=== PATIENT | female | born 1955 | race Caucasian/White ===

== ENCOUNTER 2020-07-23 23:14 | Inpatient (IN) | payer OTHER ==
[~2020-07-23] VITALS: Ht 152.4 cm; Wt 65.1 kg
[2020-07-24] MEDS ORDERED: ONDANSETRON ODT 4 MG TAB PO ONE ×2 (01:09→01:15)
[2020-07-24 07:35] LABS: Basophils # (auto) 0 10 ^3/uL (0-0.2); Eosinophils # (auto) 0.1 10 ^3/uL (0-0.8); Eosinophils % (auto) 0.8 % (0.0-7.0); Lymphocytes # (auto) 0.8 10 ^3/uL (0.4-5.4); Mean Corpuscular Volume 69.5 fL (80.0-100.0); Monocytes # (auto) 0.5 10 ^3/uL (0-1.3); Monocytes % (auto) 5.7 % (0.0-12.0)
[2020-07-24 07:38] LABS: Basophils % (auto) 0.3 % (0.0-2.0); Hematocrit 28.6 % (36.0-46.0); Hemoglobin 9.4 g/dL (12.2-16.2); Lymphocytes % (auto) 10.1 % (10.0-50.0); Mean Corpuscular Hemoglobin 22.9 pg (28.0-32.0); Neutrophils # (auto) 6.6 10 ^3/uL (1.6-8.6); Neutrophils % (auto) 83.1 % (37.0-80.0); Nucleated Red Blood Cells % 0.1 %; Platelet Count (auto) 482 10^3/uL (140-450); Red Blood Cells 4.12 10^6/uL (4.0-5.20); Red Cell Distribution Width 18.8 % (11.8-14.3)
[2020-07-24 08:00] LABS: Lactic Acid w/Reflex 2.3 mmol/L (0.4-2.0)
[2020-07-24 09:04] LABS: Albumin 3.2 g/dL (3.4-5.0); BUN/Creatinine Ratio 15.1; Calcium 8.9 mg/dL (8.5-10.1)
[2020-07-24 09:13] LABS: Bilirubin, Total 0.2 mg/dL (0.2-1.0); Total Protein 7.6 g/dL (6.4-8.2)
[2020-07-24] MEDS ORDERED: IOHEXOL 300 MG/ML 100ML BOTTLE IJ ONE (10:38)
[2020-07-24] MEDS ORDERED: NITROGLYCERIN 0.4 MG SL TAB SL PRN (17:00)
[2020-07-24] MEDS ORDERED: SOD CHL 0.9%/ KCL 40MEQ 1,000 ML IV ONE (17:00)
[2020-07-24] MEDS ORDERED: DOCUSATE SOD 100 MG CAP PO PRN (17:00)
[2020-07-24] MEDS ORDERED: MORPHINE SULF INJ 2 MG/ML SYRINGE 1ML IV PRN (17:00)
[2020-07-24] MEDS ORDERED: ACETAMINOPHEN 500 MG TAB PO PRN (17:00)
[2020-07-25] MEDS: CLINDAMYCIN 300MG IV 50 ML IV SCH ×4 (04:29→21:32)
[2020-07-25] MEDS: cefTRIAXone 1GM/50ML D5W 50 ML IV SCH (09:33)
[2020-07-25] MEDS: MORPHINE SULF INJ 2 MG/ML SYRINGE 1ML IV PRN ×3 (10:16→22:38)
[2020-07-25] MEDS: ONDANSETRON HCL 4 MG/2 ML VIAL IV PRN ×2 (10:16→18:03)
[2020-07-25] MEDS ORDERED: POTASSIUM EFFERVESENT TAB 25 MEQ PO ONE (15:00)
[2020-07-25 22:18] VITALS: BP 142/66
[2020-07-26] VITALS: BP 142/66
[2020-07-26] MEDS: HYDROcodone-ACET 5/325MG TAB PO PRN ×3 (00:22→21:46)
[2020-07-26] MEDS: CLINDAMYCIN 300MG IV 50 ML IV SCH ×3 (05:37→21:46)
[2020-07-26] MEDS: MORPHINE SULF INJ 2 MG/ML SYRINGE 1ML IV PRN ×3 (05:49→20:00)
[2020-07-26 06:28] LABS: Lymphocytes # (auto) 0.8 10 ^3/uL (0.4-5.4); Monocytes # (auto) 0.6 10 ^3/uL (0-1.3); Neutrophils # (auto) 4.1 10 ^3/uL (1.6-8.6); White Blood Cell 5.7 10^3/uL (4.4-10.8)
[2020-07-26 06:30] LABS: Basophils # (auto) 0 10 ^3/uL (0-0.2); Basophils % (auto) 0.6 % (0.0-2.0); Eosinophils # (auto) 0.3 10 ^3/uL (0-0.8); Eosinophils % (auto) 4.4 % (0.0-7.0); Hematocrit 23.5 % (36.0-46.0); Hemoglobin 7.7 g/dL (12.2-16.2); Mean Corpuscular Hemoglobin 22.7 pg (28.0-32.0); Monocytes % (auto) 10.3 % (0.0-12.0); Neutrophils % (auto) 70.7 % (37.0-80.0); Platelet Count (auto) 345 10^3/uL (140-450); Red Cell Distribution Width 19.1 % (11.8-14.3)
[2020-07-26 08:00] VITALS: BP 128/73
[2020-07-26 08:02] LABS: BUN/Creatinine Ratio 13.6; Calcium 8.1 mg/dL (8.5-10.1); Potassium 3.6 mmol/L (3.5-5.1)
[2020-07-26] MEDS: cefTRIAXone 1GM/50ML D5W 50 ML IV SCH (09:23)
[2020-07-26 10:56] LABS: % Iron Saturation 3.8 % (15-50)
[2020-07-26 11:06] LABS: CRP High Sensitivity 3.7 mg/dL (< 0.3)
[2020-07-26 16:00] VITALS: BP 133/70
[2020-07-26] MEDS: FERROUS SULFATE 325 MG TAB PO SCH (17:05)
[2020-07-27] VITALS: BP 119/72
[2020-07-27] MEDS: MORPHINE SULF INJ 2 MG/ML SYRINGE 1ML IV PRN ×4 (01:31→21:28)
[2020-07-27] MEDS: CLINDAMYCIN 300MG IV 50 ML IV SCH ×3 (05:40→21:27)
[2020-07-27 06:27] LABS: Eosinophils # (auto) 0.3 10 ^3/uL (0-0.8); Hemoglobin 8.3 g/dL (12.2-16.2); Lymphocytes # (auto) 0.7 10 ^3/uL (0.4-5.4); Mean Corpuscular Hemoglobin 22.5 pg (28.0-32.0); Mean Corpuscular Volume 68.9 fL (80.0-100.0); Monocytes # (auto) 0.5 10 ^3/uL (0-1.3); White Blood Cell 5.5 10^3/uL (4.4-10.8)
[2020-07-27 06:30] LABS: Basophils # (auto) 0.1 10 ^3/uL (0-0.2); Basophils % (auto) 1.1 % (0.0-2.0); Eosinophils % (auto) 6.2 % (0.0-7.0); Hematocrit 25.3 % (36.0-46.0); Lymphocytes % (auto) 13.5 % (10.0-50.0); Mean Corpuscular Hgb Conc. 32.7 g/dL (32.0-36.0); Neutrophils # (auto) 3.8 10 ^3/uL (1.6-8.6); Neutrophils % (auto) 70.2 % (37.0-80.0); Nucleated Red Blood Cells % 0.1 %; Platelet Count (auto) 388 10^3/uL (140-450); Red Blood Cells 3.68 10^6/uL (4.0-5.20); Red Cell Distribution Width 19.3 % (11.8-14.3)
[2020-07-27 08:00] VITALS: BP 141/66
[2020-07-27 08:02] LABS: Calcium 8.2 mg/dL (8.5-10.1); Potassium 3.7 mmol/L (3.5-5.1)
[2020-07-27] MEDS: FERROUS SULFATE 325 MG TAB PO SCH ×2 (09:31→18:04)
[2020-07-27] MEDS: cefTRIAXone 1GM/50ML D5W 50 ML IV SCH (09:32)
[2020-07-27] MEDS ORDERED: GASTROGRAFIN 30 ML SOL ONE (14:25)
[2020-07-27 16:00] VITALS: BP 131/60
[2020-07-27] MEDS: ASCORBIC ACID 500 MG TAB PO SCH (21:27)
[2020-07-28] VITALS: BP 115/73
[2020-07-28] MEDS: MORPHINE SULF INJ 2 MG/ML SYRINGE 1ML IV PRN ×3 (02:36→18:25)
[2020-07-28] MEDS: CLINDAMYCIN 300MG IV 50 ML IV SCH (05:29)
[2020-07-28] MEDS: HYDROcodone-ACET 5/325MG TAB PO PRN ×2 (06:43→22:10)
[2020-07-28 08:00] VITALS: BP 147/69
[2020-07-28] MEDS: cefTRIAXone 1GM/50ML D5W 50 ML IV SCH (09:27)
[2020-07-28] MEDS: CHOLECALCIFEROL (VITD3) 2,000 UNIT CAP PO SCH (09:27)
[2020-07-28] MEDS: ZINC SULFATE 220mg CAP or TAB PO SCH (09:27)
[2020-07-28] MEDS: FERROUS SULFATE 325 MG TAB PO SCH ×2 (09:27→18:24)
[2020-07-28] MEDS: ASCORBIC ACID 500 MG TAB PO SCH ×2 (09:27→22:03)
[2020-07-28] MEDS ORDERED: CHOL20007 PO (13:22)
[2020-07-28] MEDS ORDERED: ZINC220T6 PO (13:22)
[2020-07-28] MEDS ORDERED: ASCO500T11 PO (13:22)
[2020-07-28] MEDS ORDERED: FER325T PO (13:22)
[2020-07-28] MEDS ORDERED: DOXY-340 PO (13:35)
[2020-07-28 14:47] LABS: Hemoglobin 8.5 g/dL (12.2-16.2)
[2020-07-28 14:49] LABS: Hematocrit 25.3 % (36.0-46.0)
[2020-07-28 16:00] VITALS: BP 138/48
[2020-07-28] MEDS: DOXYCYCLINE 100 MG TAB/CAP PO SCH (22:03)
[2020-07-29] VITALS: BP 118/74
[2020-07-29 02:57] VITALS: BP 118/74
[2020-07-29] MEDS: HYDROcodone-ACET 5/325MG TAB PO PRN (05:48)
[2020-07-29 08:00] VITALS: BP 90/53
[2020-07-29] MEDS: FERROUS SULFATE 325 MG TAB PO SCH ×2 (08:00→17:49)
[2020-07-29] MEDS: DOXYCYCLINE 100 MG TAB/CAP PO SCH ×2 (09:28→21:23)
[2020-07-29] MEDS: CHOLECALCIFEROL (VITD3) 2,000 UNIT CAP PO SCH (09:28)
[2020-07-29] MEDS: ASCORBIC ACID 500 MG TAB PO SCH ×2 (09:28→21:23)
[2020-07-29] MEDS: ZINC SULFATE 220mg CAP or TAB PO SCH (09:28)
[2020-07-29] MEDS: MORPHINE SULF INJ 2 MG/ML SYRINGE 1ML IV PRN ×3 (15:27→23:58)
[2020-07-29 16:00] VITALS: BP 147/82
[2020-07-29] MEDS: ONDANSETRON HCL 4 MG/2 ML VIAL IV PRN (23:26)
[2020-07-30] VITALS: BP 123/84
[2020-07-30] MEDS: MORPHINE SULF INJ 2 MG/ML SYRINGE 1ML IV PRN ×5 (05:02→22:47)
[2020-07-30 07:30] VITALS: BP 138/76
[2020-07-30] MEDS: FERROUS SULFATE 325 MG TAB PO SCH ×2 (08:00→17:46)
[2020-07-30] MEDS: DOXYCYCLINE 100 MG TAB/CAP PO SCH ×2 (09:48→21:41)
[2020-07-30] MEDS: ASCORBIC ACID 500 MG TAB PO SCH ×2 (09:48→21:41)
[2020-07-30] MEDS: CHOLECALCIFEROL (VITD3) 2,000 UNIT CAP PO SCH (09:48)
[2020-07-30] MEDS: ZINC SULFATE 220mg CAP or TAB PO SCH (09:48)
[2020-07-30] MEDS: HYDROcodone-ACET 5/325MG TAB PO PRN (14:49)
[2020-07-30 16:00] VITALS: BP 136/77
[2020-07-31 00:02] VITALS: BP 106/72
[2020-07-31] MEDS: MORPHINE SULF INJ 2 MG/ML SYRINGE 1ML IV PRN ×4 (03:15→16:33)
[2020-07-31 08:00] VITALS: BP 121/71
[2020-07-31] MEDS: FERROUS SULFATE 325 MG TAB PO SCH ×2 (08:00→18:00)
[2020-07-31] MEDS: ZINC SULFATE 220mg CAP or TAB PO SCH (08:13)
[2020-07-31] MEDS: DOXYCYCLINE 100 MG TAB/CAP PO SCH ×2 (08:13→22:00)
[2020-07-31] MEDS: ASCORBIC ACID 500 MG TAB PO SCH ×2 (08:13→22:00)
[2020-07-31] MEDS: CHOLECALCIFEROL (VITD3) 2,000 UNIT CAP PO SCH (08:14)
[2020-07-31 16:00] VITALS: BP 133/78
[2020-07-31] MEDS: HYDROcodone-ACET 5/325MG TAB PO PRN (18:44)
[2020-08-01] VITALS: BP 125/68
[2020-08-01] MEDS: MORPHINE SULF INJ 2 MG/ML SYRINGE 1ML IV PRN ×2 (00:19→05:24)
[2020-08-01 08:00] VITALS: BP 130/50
[2020-08-01] MEDS: FERROUS SULFATE 325 MG TAB PO SCH ×2 (08:00→18:00)
[2020-08-01] MEDS: ZINC SULFATE 220mg CAP or TAB PO SCH ×2 (08:52→10:00)
[2020-08-01] MEDS: DOXYCYCLINE 100 MG TAB/CAP PO SCH ×3 (08:53→21:28)
[2020-08-01] MEDS: ASCORBIC ACID 500 MG TAB PO SCH ×3 (08:53→21:28)
[2020-08-01] MEDS: CHOLECALCIFEROL (VITD3) 2,000 UNIT CAP PO SCH (10:00)
[2020-08-01] MEDS: HYDROcodone-ACET 5/325MG TAB PO PRN ×2 (10:59→18:02)
[2020-08-01 15:45] LABS: Hemoglobin 8.5 g/dL (12.2-16.2)
[2020-08-01 15:49] LABS: Hematocrit 25.9 % (36.0-46.0)
[2020-08-01 16:00] VITALS: BP 131/68
[2020-08-02] VITALS: BP 146/78
[2020-08-02] MEDS: HYDROcodone-ACET 5/325MG TAB PO PRN ×2 (00:10→14:25)
[2020-08-02 08:00] VITALS: BP 142/88
[2020-08-02] MEDS: FERROUS SULFATE 325 MG TAB PO SCH (08:00)
[2020-08-02] MEDS: CHOLECALCIFEROL (VITD3) 2,000 UNIT CAP PO SCH (10:00)
[2020-08-02] MEDS: DOXYCYCLINE 100 MG TAB/CAP PO SCH (10:00)
[2020-08-02] MEDS: ZINC SULFATE 220mg CAP or TAB PO SCH (10:00)
[2020-08-02] MEDS: ASCORBIC ACID 500 MG TAB PO SCH (10:00)
[2020-08-02 16:00] VITALS: BP 124/85
== END 2020-08-02 18:36 | disposition home health service (06) | DRG 252 ==
LOC: EDBD 23:14 → ER 23:14 → OVERFLOW 07-24 16:57 → TELE-EAST 07-25 22:26 → EAST 08-01 09:25
PROVIDERS: ADMIT Nurse Practitioner Acute Care; ATTEND Internal Medicine
DX: K94.03 Colostomy malfunction (principal); U07.1 COVID-19; L03.311 Cellulitis of abdominal wall; K59.00 Constipation, unspecified; E87.6 Hypokalemia; C19 Malignant neoplasm of rectosigmoid junction; E66.9 Obesity, unspecified; I10 Essential (primary) hypertension; D63.8 Anemia in other chronic diseases classified elsewhere; N82.3 Fistula of vagina to large intestine; D50.9 Iron deficiency anemia, unspecified; Z80.0 Family history of malignant neoplasm of digestive organs; Z80.1 Family history of malignant neoplasm of trachea, bronchus and lung; Z80.6 Family history of leukemia; Z85.048 Personal history of other malignant neoplasm of rectum, rectosigmoid junction, and anus; R79.89 Other specified abnormal findings of blood chemistry; Z68.28 Body mass index [BMI] 28.0-28.9, adult; L25.9 Unspecified contact dermatitis, unspecified cause; E44.1 Mild protein-calorie malnutrition; Y83.3 Surgical operation with formation of external stoma as the cause of abnormal reaction of the patient, or of later complication, without mention of misadventure at the time of the procedure; J12.82 Pneumonia due to coronavirus disease 2019
CPT/HCPCS: 36415; 71045; 72192; 74176; 80048; 80053; 82728; 83540; 83550; 83605; 83615; 85014; 85018; 85025; 86141; 87081; 87426; 93005; 97116; 97163; 97530; G0378; J0696; J2405; J3490; Q0162